=== PATIENT | male | born 1975 | race Caucasian/White ===

== ENCOUNTER 2025-09-01 06:14 | Day surgery (SDC) | payer BC, SELFPAY ==
[2025-09-01] VITALS (8 sets, daily range): BP systolic 99–114; BP diastolic 59–76; BMI 26.7
[2025-09-01 09:12] LABS: Glucose - Point of Care 121 mg/dl (70-99)
[2025-09-01] MEDS: TYLENOL 1000 MG PO (09:12)
[2025-09-01] MEDS: NORMOSOL-R/PLASMALYTE-A 1000 IV (09:12)
[2025-09-01 11:07] LABS: Glucose - Point of Care 158 mg/dl (70-99)
== END 2025-09-01 12:31 | disposition home or self-care (01) ==
LOC: SDS 06:14
PROVIDERS: ATTENDING PHYSICIAN Otolaryngology
DX: J34.3 Hypertrophy of nasal turbinates (principal); J34.2 Deviated nasal septum
CPT/HCPCS: 30140; 82962